=== PATIENT | male | born 1935 | race African-American/Black ===

== ENCOUNTER → 2025-07-06 | Day surgery (SDC) | payer OTHER ==
[~2025-07-06] VITALS: Ht 177.8 cm; Wt 102.1 kg
[~2025-07-06] MED LIST: AMLO-372 PO; ASPI-1079 PO; BALANCED SALT IRRIG SOLN 15ML ONE; BALANCED SALT IRRIG SOLN COMB1 500ML OP SCH; CYCLOPENTOLATE HCL 1% OPHTH DROPS 2ML LEFTEYE NR; FENTANYL CITRATE/PF 50MCG/ML 2ML VIAL ONE; GABA-529 PO; HYALURONATE SODIUM 10MG/ML 0.55ML SYRINGE IO ONE; LEVO25TA7 PO; LIDOCAINE HCL 1% 10 MG/ML 10ML VIAL ONE; NITR-87 PO; PHENYLEPHRINE HCL 10% OPHTH DROPS 5ML LEFTEYE NR; PROPOFOL 200MG/20ML VIAL IV ONE; TADA5TAB PO; TAMS-54 PO; TROPICAMIDE 1% OPHTH DROPS 15ML LEFTEYE NR
[2025-07-06 07:00] LABS: BASOPHILS % 0.6 % (0.0-2.0); EOSINOPHILS % 3.5 % (0.0-5.0); HEMATOCRIT. 38.7 % (42.0-52.0); HEMOGLOBIN. 12.8 g/dL (14.0-18.0); LYMPHOCYTES % 32.6 % (20.0-50.0); MEAN PLATELET VOLUME 6.2 fl (7.4-10.4); MONOCYTES % 9.8 % (2.0-8.0); NEUTROPHILS % 53.5 % (40.0-76.0); PLATELET 195 x1000/uL (130-400); RED BLOOD CELL COUNT 4.06 mill/uL (4.7-6.1); RED CELL DISTRIBUTION WIDTH 14.2 % (11.6-14.6)
[2025-07-06 07:24] LABS: CREATININE 1.1 mg/dL (0.6-1.3)
[2025-07-06 07:25] LABS: UREA NITROGEN BLOOD 16 mg/dL (9-23)
[2025-07-06] MEDS: LACTATED RINGERS 1,000 ML IV SCH (07:43)
== END | disposition home or self-care (01) ==
LOC: OR 06:12
PROVIDERS: ATTEND Ophthalmology
DX: H25.89 Other age-related cataract (principal); I10 Essential (primary) hypertension; E78.5 Hyperlipidemia, unspecified; I25.10 Atherosclerotic heart disease of native coronary artery without angina pectoris; E03.9 Hypothyroidism, unspecified; Z79.899 Other long term (current) drug therapy; Z98.890 Other specified postprocedural states; Z79.82 Long term (current) use of aspirin; Z88.2 Allergy status to sulfonamides
CPT/HCPCS: 66984; 36415; 80048; J3010; J3490 ×3; J2003 ×2; J2704; 85025; V2632